=== PATIENT | male | born 1960 | race Caucasian/White ===

== ENCOUNTER → 2018-07-29 09:45 | Outpatient (CLI) | payer OTHER, SELFPAY ==
[2018-07-29 12:40] LABS: Erythrocyte Sedimentation Rate 10 mm/hr (0-20)
[2018-07-29 12:44] LABS: Hemoglobin 15.8 g/dl (13.0-16.5); Mean Corp Hgb Conc 33.6 g/gl (32-36); Mean Corpuscular Hgb 29.1 pg (27.0-32.0); Mean Corpuscular Volume 86.6 fL (80-94); Mean Platelet Vol. 10.8 fl (6.2-12.0); Platelet Count 232 K/mm3 (150-450); RBC Distribution Width CV 13.5 % (11.6-14.6); RBC Distribution Width SD 42.5 fl (35.1-43.9); Red Blood Count 5.43 M/mm3 (4.6-6.2); White Blood Count 6.3 K/mm3 (4.4-11.0)
[2018-07-29 12:46] LABS: Scan Indicated on CBC? Y/N NO
[2018-07-29 12:47] LABS: Anion Gap 6 (5-15); BUN 14 mg/dL (7-18); BUN/Creat Ratio 12.6 RATIO (10-20); Calcium,Total 8.6 mg/dL (8.5-10.1); Chloride 106 mmol/L (98-107); Creatinine, Serum 1.11 mg/dL (0.70-1.30); EST Glomerular Filtration Rate 72 mL/min (>60); Est Glom Filt Rate - Afr Amer 88 mL/min (>60); Glucose 112 mg/dL (74-106); Magnesium 2.2 mg/dL (1.6-2.6); Potassium 4.1 mmol/L (3.5-5.1); Sodium Level 140 mmol/L (136-145); Thyroid Stim Hormone (TSH) 1.76 uIU/mL (0.358-3.74)
[2018-07-29 12:50] LABS: Vitamin B12 921 pg/mL (211-911); Vitamin D,25 Hydroxy 16.3 ng/mL (29.95-100.01)
== END ==
PROVIDERS: Family Provider Family Medicine; PCP Family Medicine; Visit Provider Family Medicine
DX: G25.2 Other specified forms of tremor (principal)
CPT/HCPCS: 36415; 80048; 82306; 82607; 83735; 84443; 85027; 85652

== ENCOUNTER → 2019-01-24 08:06 | Outpatient (CLI) | payer OTHER, SELFPAY ==
[2019-01-24 10:45] LABS: Vitamin D,25 Hydroxy 36.6 ng/mL (29.95-100.01)
== END ==
PROVIDERS: Family Provider Family Medicine; PCP Family Medicine; Referring Provider Family Medicine; Visit Provider Family Medicine
DX: R79.89 Other specified abnormal findings of blood chemistry (principal)
CPT/HCPCS: 36415; 82306

== ENCOUNTER → 2020-02-24 13:13 | Outpatient (CLI) | payer OTHER, SELFPAY ==
[2020-02-24 15:27] LABS: Vitamin D,25 Hydroxy 68.7 ng/mL
[2020-02-24 15:28] LABS: AST(SGOT) 65 U/L (15-37); Alanine Aminotransfer ALT/SGPT 93 U/L (16-61); Albumin, Serum 3.9 g/dL (3.2-5.0); Alkaline Phosphatase 58 U/L (45-117); Anion Gap 6 (5-15); BUN 22 mg/dL (7-18); BUN/Creat Ratio 17.5 RATIO (10-20); Calcium,Total 8.9 mg/dL (8.5-10.1); Chloride 102 mmol/L (98-107); Creatinine, Serum 1.26 mg/dL (0.70-1.30); EST Glomerular Filtration Rate 62 mL/min (>60); Est Glom Filt Rate - Afr Amer 75 mL/min (>60); Globulin 3.9 g/dL (2.2-4.2); Glucose 86 mg/dL (74-106); PSA,Total - Annual Screen 0.86 ng/mL (0.00-4.00); Protein, Total 7.8 g/dL (6.4-8.2); Sodium Level 136 mmol/L (136-145)
[2020-02-24 15:42] LABS: Hemoglobin A1c 5.5 % (3.8-5.6)
== END ==
PROVIDERS: PCP Family Medicine; Referring Provider Family Medicine; Visit Provider Family Medicine
DX: R79.89 Other specified abnormal findings of blood chemistry (principal); R73.01 Impaired fasting glucose; Z12.5 Encounter for screening for malignant neoplasm of prostate
CPT/HCPCS: 36415; 80053; 82306; 83036; 84153; G0103

== ENCOUNTER 2020-05-04 14:00 | Outpatient (RCR) | payer SELFPAY | END 2020-05-09 23:59 | LOC: NS 14:00 | PROVIDERS: PCP Family Medicine; Visit Provider Family Medicine | DX: Z71.3 Dietary counseling and surveillance (principal); E66.3 Overweight; Z68.30 Body mass index [BMI] 30.0-30.9, adult | CPT/HCPCS: 97802; 97803 ==

== ENCOUNTER → 2021-03-02 09:07 | Outpatient (CLI) | payer OTHER, SELFPAY ==
[2021-03-02 10:14] LABS: Hematocrit 48.6 % (40-54); Hemoglobin 16.4 g/dL (13.0-16.5); Mean Corp Hgb Conc 33.7 g/dL (32-36); Mean Corpuscular Hgb 28.9 pg (27.0-32.0); Mean Corpuscular Volume 85.6 fL (80-94); Mean Platelet Vol. 10.6 fl (6.2-12.0); Platelet Count 253 K/mm3 (150-450); RBC Distribution Width CV 12.6 % (11.6-14.6); RBC Distribution Width SD 39.4 fl (35.1-43.9); Red Blood Count 5.68 M/mm3 (4.6-6.2); White Blood Count 6.2 K/mm3 (4.4-11.0)
[2021-03-02 10:41] LABS: Hemoglobin A1c 5.5 % (3.8-5.6)
[2021-03-02 10:54] LABS: Vitamin D,25 Hydroxy 32.6 ng/mL
[2021-03-02 10:56] LABS: ALB/GLOB Ratio 0.9 RATIO (0.9-2.4); AST(SGOT) 19 U/L (15-37); Alanine Aminotransfer ALT/SGPT 34 U/L (16-61); Albumin, Serum 3.5 g/dL (3.2-5.0); Alkaline Phosphatase 52 U/L (45-117); Anion Gap 8 (5-15); BUN 15 mg/dL (7-18); BUN/Creat Ratio 13.5 RATIO (10-20); Chloride 105 mmol/L (98-107); Cholesterol 156 mg/dL (200); Creatinine, Serum 1.11 mg/dL (0.70-1.30); EST Glomerular Filtration Rate 72 mL/min (>60); Est Glom Filt Rate - Afr Amer 87 mL/min (>60); Globulin 3.9 g/dL (2.2-4.2); Glucose 108 mg/dL (74-106); High Density Lipoprotein 42 mg/dL; PSA,Total- Diagnostic 0.76 ng/mL (0.0-4.0); Potassium 3.9 mmol/L (3.5-5.1); Protein, Total 7.4 g/dL (6.4-8.2); Sodium Level 138 mmol/L (136-145); Triglycerides 61 mg/dL; Very Low Density Lipoprotein 12 mg/dL (5-40)
== END ==
PROVIDERS: PCP Family Medicine; Referring Provider Family Medicine; Visit Provider Family Medicine
DX: R79.89 Other specified abnormal findings of blood chemistry (principal); R73.01 Impaired fasting glucose; R74.8 Abnormal levels of other serum enzymes; E34.9 Endocrine disorder, unspecified; Z12.5 Encounter for screening for malignant neoplasm of prostate
CPT/HCPCS: 36415; 80053; 80061; 82306; 83036; 84153; 84403; 85027; 86900; 86901

== ENCOUNTER 2021-04-12 13:38 | Outpatient (CLI) | payer OTHER, SELFPAY ==
--- NOTE | 2021-04-12 13:41 | RAD_ITS ---
STUDY: X-RAY CHEST REASON FOR EXAM: Male, 60 years old. BRONCHOSPASM TECHNIQUE: PA and lateral views of the chest. COMPARISON: None. FINDINGS: The lungs are clear and expanded. There is no demonstrated pleural abnormality. Normal size heart. Normal mediastinum and jessica. Normal visualized pulmonary arteries. Normal visualized aortic arch and descending thoracic aorta. Normal visualized thoracic spine. Normal visualized ribs, clavicles, and shoulders. There is no demonstrated abnormality of the visualized soft tissue structures of the upper abdomen. RAD/Chest PA and Lateral IMPRESSION: Normal x-ray examination of the chest. Electronically Signed: Jd Hartman MD at 14:41 EST Tel , Service support ,
== END 2021-04-12 23:59 | disposition short-term general hospital (02) ==
LOC: MTRAD 13:40
PROVIDERS: PCP Family Medicine; Referring Provider Family Medicine; Visit Provider Family Medicine
DX: J98.01 Acute bronchospasm (principal)
CPT/HCPCS: 71046

== ENCOUNTER → 2021-11-15 | Outpatient (CLI) | payer OTHER, SELFPAY ==
--- NOTE | 2021-11-15 15:02 | RAD_ITS ---
STUDY: X-RAY CHEST REASON FOR EXAM: Male, 61 years old. Chest pain/pressure TECHNIQUE: PA and lateral views of the chest. COMPARISON: 04/12/2021 FINDINGS: Since the previous study, patient has undergone surgery to repair a clavicle fracture and there are multiple healed left ribs. The right lung is normally expanded and free of a superimposed process while the left lung shows blunting of the left costophrenic angle suggesting a likely combination of atelectasis and effusion. No clearly demonstrated pneumothorax is noted. Normal size heart. Normal mediastinum and jessica. Normal visualized pulmonary arteries. Normal visualized aortic arch and descending thoracic aorta. Normal visualized thoracic spine There is no demonstrated abnormality of the visualized soft tissue structures of the upper abdomen. RAD/Chest PA and Lateral IMPRESSION: Blunting of the left costophrenic angle suggests a likely combination of atelectasis and effusion. Follow-up recommended to ensure resolution Surgical hardware on the left clavicle free of complication Right lung free of superimposed process Electronically Signed: Stan Mcmahon MD at 9:39 EDT ,
== END | disposition home or self-care (01) ==
LOC: MTRAD 15:01
PROVIDERS: PCP Family Medicine; Referring Provider Family Medicine; Visit Provider Family Medicine
DX: J93.9 Pneumothorax, unspecified (principal)
CPT/HCPCS: 71046

== ENCOUNTER 2021-12-26 16:30 | Outpatient (RCR) | payer OTHER, SELFPAY ==
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
--- NOTE | 2021-11-11 14:58 | HP.PTREVAL ---
ANIL ROCHA, It has been my pleasure to treat CHEPE HERNANDEZ over the last 0 visits for DISPLACED FRACTURE OF SHAFT OF LEFT CLAVICLE ,SUBS FOR FRACTURE. Please see the progress note below for an update on the physical therapy plan of care! Subjective: Doing well .. Improving PROM and started moving on own .. Plan to See DR blankenship Sunday hope to progress to strengthening. feels muscle pulling pec region. Some spasms scapular thoracic possible from ribs and vertebra fx's Objective/Function: POSTURE: rounded shoulder. NEURO: denies paresthesia/tingling. PROM: shoulder flexion supine 147 degrees, abduction in scapation 150 degrees,ER 68 degrees. AROM: shoulder flexion 120 degrees, abduction in scaption ~ 120 degrees Plan Plan: requesting more visits 8 visits. S/P ORIF CLAVICALE PLATE SREWS ON September S/P 5 WEEKS NOV 10. PROM WITH TRANSITION TO AROM 4-6WEEKS. MAY WEAN FROM SLING. PT INTERVETIONS PROM FOR 4-6 WEEKS THEN AROM ,STRENGTHENING PER MD ORDER ,MANUAL THERAPY ,AND CP/MHP Balance/Gait/Functional tests - Balance/Special Test Scores Quick DASH Score: 77.2725 Goals Goal 1:: Patient to be I with HEP for shoulder Goal Time Frame: 8-12 Weeks Goal Progress: Progressing Goal 2:: Patient to improve PROM shoulder flexion 150 degrees , abduction 145 degrees , 90 ER and IR 80 to improve function Goal Time Frame: 6-8 Weeks Goal Progress: Progressing Goal 3:: Patient to demonstrate 70 % improvement with improved function and pain Goal Time Frame: 8-12 Weeks Goal Progress: Progressing Goal 4:: Patient to improve AROM left shoulder 150 degrees for flexion/abduction ,ER 90 degrees, IR L1 to improve function for ADLS Goal Time Frame: 8-12 Weeks Goal Progress: Progressing Goal 5:: Patient to increase strength RTC 4/5 and deltoid 4-/5 to improve function and return to work Goal Time Frame: 8-12 Weeks Goal Progress: Progressing Goal 6:: Patient to improve quick dash by 10 -15 points to improve function and QOL and job demands. Goal Time Frame: 8-12 Weeks Anticipated Interventions Patient/Client Instruction: Educate patient on: Condition, Plan of Care For the Purpose of:: To decrease pain, To increase ROM, To improve muscle performance and motor function, To improve ability to perform ADL's, To increase tolerance to activity/condition/position, To improve performance and independence with ADL's, To improve ability of physical actions for home/community/work/leisure, To improve health of tissue, To decrease soft tissue restriction, To increase flexibility/ROM, To improve safety with gait, To reduce risk of recurrence, To improve tolerance to ADL's Therapeutic Exercise to Include: Strength training, Body mechanics, Postural training, Flexibilty training, Passive ROM, Active ROM, Scapular Strength/Stabilization Comment: RTC For the Purpose of:: To decrease pain, To increase ROM, To improve muscle performance and motor function, To improve ability to perform ADL's, To improve performance and independence with ADL's, To improve ability of physical actions for home/community/work/leisure, To improve gait and locomotor functions, To improve health of tissue, To decrease soft tissue restriction, To increase flexibility/ROM, To improve tolerance to ADL's Manual Therapy Techniques to Include: Mobilization, Passive ROM Comment: SHOULDER..G-H For the Purpose of:: To decrease pain, To increase ROM, To improve muscle performance and motor function, To improve ability to perform ADL's, To increase tolerance to activity/condition/position, To improve ability of physical actions for home/community/work/leisure, To improve health of tissue, To decrease soft tissue restriction, To increase flexibility/ROM, To prevent re-injury, To improve tolerance to ADL's Please do not hesitate to contact me at [phone] by phone or if you have questions or concerns regarding this new plan of care! Sincerely, Igor Salazar, PT, Cert MDT, OCS
--- NOTE | 2022-03-10 08:09 | HP.PTDCSUM ---
It has been my pleasure to treat CHEPE HERNANDEZ referred by ANIL ROCHA, with the diagnosis of DISPLACED FRACTURE OF SHAFT OF LEFT CLAVICLE ,SUBS FOR FRACTURE for a total of 13 visit(s). Discharge Date: 03/10/22 Please see the following information for a summary of their discharge status. Subjective: Seen DR happy with progress as enmanuel with strengthening. Still have some areas Left Shoulder Pain Intensity (Out of 10): 0 % Improvement: 80 Objective/Function: GOOD TOLERANCE OF EX'S WITH ROM shoulder flexion. AROM AND DELTOID STRENGTH 4-/5. AROM shoulder flexion /abduction 150 degrees,ER 80 degreees Goal 1:: Patient to be I with HEP for shoulder Goal Progress: Goal Met Goal 2:: Patient to improve PROM shoulder flexion 150 degrees , abduction 145 degrees , 90 ER and IR 80 to improve function Goal Progress: Goal Met Goal 3:: Patient to demonstrate 70 % improvement with improved function and pain Goal Progress: Goal Met Goal 4:: Patient to improve AROM left shoulder 150 degrees for flexion/abduction ,ER 90 degrees, IR L1 to improve function for ADLS Goal Progress: Goal Met Goal 5:: Patient to increase strength RTC 4/5 and deltoid 4-/5 to improve function and return to work Goal Progress: Goal Met Goal 6:: Patient to improve quick dash by 10 -15 points to improve function and QOL and job demands. Goal Progress: Goal Met Plan: . S/P ORIF CLAVICALE PLATE SREWS ON September S/P 5 WEEKS NOV 10. PROM WITH TRANSITION TO AROM 4-6WEEKS, OKAY WITH AROM AND NO STRENGTHNEING FOR 4WEEKS FROM 11/21. PT INTERVETIONS PROM FOR 4-6 WEEKS THEN AROM ,STRENGTHENING PER MD ORDER ,MANUAL THERAPY ,AND CP/MHP Discharge Comments: hep If there are questions or concerns regarding this patient's physical therapy, please feel free to call me at [phone]. Thank you for the referral of this patient. Sincerely, Igor Salazar, PT, Cert MDT, OCS Balance/Gait/Functional tests - Balance/Special Test Scores Quick DASH Score: 77.2726
== END 2021-12-26 19:00 | disposition home or self-care (01) ==
LOC: PT 16:30
PROVIDERS: PCP Family Medicine
DX: S42.022D Displaced fracture of shaft of left clavicle, subsequent encounter for fracture with routine healing (principal); X58.XXXD Exposure to other specified factors, subsequent encounter
CPT/HCPCS: 97110; 97140; 97162

== ENCOUNTER → 2022-01-02 | Outpatient (CLI) | payer OTHER, SELFPAY ==
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
== END | disposition home or self-care (01) ==
LOC: MTRAD 15:47
PROVIDERS: PCP Family Medicine; Referring Provider Family Medicine; Visit Provider Family Medicine
DX: J93.9 Pneumothorax, unspecified (principal)
CPT/HCPCS: 71046

== ENCOUNTER → 2022-02-15 | Outpatient (CLI) | payer OTHER, SELFPAY ==
[2022-02-15 18:13] LABS: AST(SGOT) 19 U/L (15-37); Alanine Aminotransfer ALT/SGPT 35 U/L (16-61); Albumin, Serum 3.8 g/dL (3.2-5.0); Alkaline Phosphatase 60 U/L (45-117); Anion Gap 5 (5-15); BUN 19 mg/dL (7-18); BUN/Creat Ratio 17.9 RATIO (10-20); Bilirubin, Direct 0.12 mg/dL (0.00-0.30); Calcium,Total 9.1 mg/dL (8.5-10.1); Chloride 104 mmol/L (98-107); Creatinine, Serum 1.06 mg/dL (0.70-1.30); EST Glomerular Filtration Rate 75 mL/min (>60); Est Glom Filt Rate - Afr Amer 91 mL/min (>60); Globulin 3.9 g/dL (2.2-4.2); Glucose 93 mg/dL (74-106); PSA,Total - Annual Screen 0.76 ng/mL (0.00-4.00); Potassium 4.2 mmol/L (3.5-5.1); Protein, Total 7.7 g/dL (6.4-8.2); Sodium Level 136 mmol/L (136-145)
== END | disposition home or self-care (01) ==
LOC: MFPLAB 15:55
PROVIDERS: PCP Family Medicine; Referring Provider Family Medicine; Visit Provider Family Medicine
DX: Z00.00 Encounter for general adult medical examination without abnormal findings (principal); R74.8 Abnormal levels of other serum enzymes; Z12.5 Encounter for screening for malignant neoplasm of prostate; Z13.1 Encounter for screening for diabetes mellitus
CPT/HCPCS: 36415; 80048; 80076; 84153; G0103